=== PATIENT | male | born 1975 | race Caucasian/White ===

== ENCOUNTER 2017-09-21 01:01 | Emergency (ER) | payer OTHER ==
[~2017-09-21] VITALS: Ht 177.8 cm; Wt 125.3 kg
[2017-09-21 01:34] LABS: HEMATOCRIT 43.1 % (38.0-50.0); MCH 29.4 PG (29.0-34.0); MCHC 34.8 G/DL (30.0-36.0); MCV 84.3 FL (86-99); PLATELET COUNT 217 K/uL (156-360); RBC DIS.WIDTH-CV 12.4 % (11.8-14.6); RBC DIS.WIDTH-SD 38.4 % (39-53); RED BLOOD COUNT 5.11 M/uL (4.00-5.50); WHITE BLOOD COUNT 7.9 K/uL (4.1-10.2)
[2017-09-21 01:50] LABS: ALBUMIN 4.2 g/dL (3.2-4.8); CHLORIDE 107 mEq/L (99-109); POTASSIUM 4.1 mEq/L (3.7-5.4); SODIUM 143 mEq/L (136-147)
[2017-09-21 01:52] LABS: GLUCOSE 100 mg/dL (70-99)
[2017-09-21 01:53] LABS: TOTAL PROTEIN 7.1 g/dL (6.4-8.3)
[2017-09-21 01:54] LABS: TOTAL BILIRUBIN 0.5 mg/dL (0.0-1.0)
[2017-09-21 01:56] LABS: ALKALINE PHOSPHATASE 55 IU/L (3-129); CREATININE 1.1 mg/dL (0.6-1.3); GFR ESTIMATE (CALCULATED) > 59 mL/min/ (58.99-99999)
[2017-09-21 01:57] LABS: UREA NITROGEN (BUN) 23 mg/dL (9-23)
[2017-09-21 01:58] LABS: AST (GOT) 20 IU/L (2-34)
[2017-09-21 01:59] LABS: ALT (GPT) 34 IU/L (3-49)
[2017-09-21 02:00] LABS: TROP-I INTERPRETATION NEGATIVE; TROPONIN-I < 0.01 ng/mL (0.0-0.30)
[2017-09-21 06:22] VITALS: BP 135/94
== END 2017-09-21 06:28 | disposition home or self-care (01) ==
LOC: EME 01:01
DX: R11.2 Nausea with vomiting, unspecified (principal); R19.7 Diarrhea, unspecified; R42 Dizziness and giddiness
CPT/HCPCS: 71046; 80053; 81003; 84484; 85027; 93005; 99281; 99284